=== PATIENT | female | born 1955 | race African-American/Black ===

== ENCOUNTER 2016-10-29 05:48 | Day surgery (SDC) | payer OTHER ==
--- NOTE | ~2016-10-29 | EGD ---
EGD REPORT [facility] [address] [place]. [id number] NAME: HONEY HINDS : 59 STATUS : REG [facility]#: [id number] AGE: 61 ADM/REG DATE : 10/29/16 MR#: [id number] REPORT SERV DATE: 10/29/16 DICTATED BY: CELESTINA GOMEZ DATE: 10/29/16 REPORT STATUS : Draft [facility]ANS[facility]IBED BY: [facility] DATE: 10/29/16 [facility] Patient Name: Honey Hinds Date of : 1955 Attending MD: CELESTINA GOMEZ MD Procedure Date No Time: 10/29/2016 Procedure: Colonoscopy Indications: High risk colon cancer surveillance: Personal history of colonic polyps, Personal history of Crohn's disease Referring MD: RIKI SÁNCHEZ Medicines: as per anesthesia Complications: No immediate complications. Procedure: After I obtained informed consent, the scope was passed under direct vision. Throughout the procedure, the patient's blood pressure, pulse, and oxygen saturations were monitored continuously. The PCF [id number] was introduced through the anus and advanced to the cecum, identified by appendiceal orifice and ileocecal valve. The colonoscopy was somewhat difficult due to significant looping and a tortuous colon. The patient tolerated the procedure. The quality of the bowel preparation was fair. Findings: The perianal and digital rectal examinations were normal. Internal hemorrhoids were found during endoscopy and were mild. no active coltis Four biopsies were obtained in the rectum, in the sigmoid colon, in the descending colon, in the proximal transverse colon, in the distal transverse colon, in the ascending colon and in the cecum with cold forceps for histology. Impression: - Internal hemorrhoids. - Four biopsies were obtained in the rectum, in the sigmoid colon, in the descending colon, in the proximal transverse colon, in the distal transverse colon, in the ascending colon and in the cecum. Recommendation: - Await pathology results. - Repeat colonoscopy for surveillance based on pathology results. Procedure Code(s): --- Professional --- 23467, Colonoscopy, flexible, proximal to splenic flexure; with biopsy, single or multiple EGD REPORT [place] [address] [place] [id number] NAME: HONEY HINDS : [birth year] STATUS : REG [facility] [place] PAT#: [id number] AGE: 61 ADM/REG DATE : 10/29/16 MR#: [id number] REPORT SERV DATE: 10/29/16 DICTATED BY: CELESTINA GOMEZ. DATE: 10/29/16 REPORT STATUS : Draft TRANSCRIBED BY: [employer] DATE: 10/29/16 Diagnosis Code(s): --- Professional --- K64.8, Other hemorrhoids Z86.010, Personal history of colonic polyps Z87.19, Personal history of other diseases of the digestive system CPT copyright 2013 [employer]. All rights reserved. The codes documented in this report are preliminary and upon body mechanic apprentice review may be revised to meet current compliance requirements. CELESTINA GOMEZ MD 10/29/2016 7:43 AM This report has been signed electronically. Number of Addenda: 0 Note Initiated On: 10/29/2016 7:10 AM [facility] [place] [id number]
[~2016-10-29 05:48] MED LIST: ATEN100 PO; BALSALAZIDE750 MG PO; CALTRA600D PO; COD LIVE1 PO; CRANBERRY500 MG PO; CULTURELLE1 EACH PO; DURAFLEX PO; GLUCOPHAGE1000 MG PO; HCTZ25B PO; KLOR-CON M2020 MEQ PO; VITAMIN D31000 UNIT PO
== END 2016-10-29 23:59 | disposition home health service (06) ==
LOC: DMU 05:48
PROVIDERS: Internal Medicine Gastroenterology
PROC: 0DBH8ZX Excision of Cecum, Via Natural or Artificial Opening Endoscopic, Diagnostic (ICD-10-PCS; 2016-10-29)
PROC: 0DBK8ZX Excision of Ascending Colon, Via Natural or Artificial Opening Endoscopic, Diagnostic (ICD-10-PCS; 2016-10-29)
PROC: 0DBL8ZX Excision of Transverse Colon, Via Natural or Artificial Opening Endoscopic, Diagnostic (ICD-10-PCS; 2016-10-29)
PROC: 0DBM8ZX Excision of Descending Colon, Via Natural or Artificial Opening Endoscopic, Diagnostic (ICD-10-PCS; 2016-10-29)
PROC: 0DBN8ZX Excision of Sigmoid Colon, Via Natural or Artificial Opening Endoscopic, Diagnostic (ICD-10-PCS; 2016-10-29)
PROC: 0DBP8ZX Excision of Rectum, Via Natural or Artificial Opening Endoscopic, Diagnostic (ICD-10-PCS; principal; 2016-10-29 07:00)
DX: Z12.11 Encounter for screening for malignant neoplasm of colon (principal); K64.8 Other hemorrhoids; I10 Essential (primary) hypertension; E11.9 Type 2 diabetes mellitus without complications; K50.90 Crohn's disease, unspecified, without complications; Z86.010 Personal history of colon polyps; Z87.19 Personal history of other diseases of the digestive system; Z88.0 Allergy status to penicillin; Z88.8 Allergy status to other drugs, medicaments and biological substances; Z79.899 Other long term (current) drug therapy; Z88.5 Allergy status to narcotic agent; Z90.710 Acquired absence of both cervix and uterus; Z98.890 Other specified postprocedural states
CPT/HCPCS: 82962; 88305